=== PATIENT | female | born 1960 ===

== ENCOUNTER 2022-03-19 07:58 | Day surgery (SDC) | payer BC ==
[~2022-03-19 07:58] MED LIST: Acetaminophen/HYDROcodone 325-5 MG Tab PO PRN; Lactated Ringers 1,000 ML IV SCH; Morphine 2 MG/ML SYRINGE IVPUSH PRN; Ondansetron 4 MG/2 ML SDV IVPUSH PRN; Sodium Chloride 0.9% 1,000 ML IV SCH; ceFAZolin 2 GM in Sodium Chloride 0.9% 50 ML IV SCH
[2022-03-19] MEDS ORDERED: Glycopyrrolate 0.2 MG/ML 2 ML SDV ONE (09:40)
[2022-03-19] MEDS ORDERED: fentaNYL 100 MCG/2 ML SDV ONE (09:40)
[2022-03-19] MEDS ORDERED: Neostigmine Methylsulfate 10 MG/10 ML MDV ONE (09:40)
[2022-03-19] MEDS ORDERED: Atropine 0.4 MG/ML SDV ONE (09:40)
[2022-03-19] MEDS ORDERED: Rocuronium 50 MG/5 ML Vial ONE (09:40)
[2022-03-19] MEDS ORDERED: Propofol 200 MG/20 ML SDV ONE (09:40)
[2022-03-19] MEDS ORDERED: fentaNYL 100 MCG/2 ML SDV IVPUSH ONE (11:33)
[2022-03-19] MEDS ORDERED: Ondansetron 4 MG/2 ML SDV ONE (13:07)
== END 2022-03-19 13:40 | disposition home or self-care (01) ==
LOC: LB.SDS 07:58
PROVIDERS: ATTEND Surgery
DX: K43.2 Incisional hernia without obstruction or gangrene (principal); K42.9 Umbilical hernia without obstruction or gangrene; Z90.49 Acquired absence of other specified parts of digestive tract; Z87.42 Personal history of other diseases of the female genital tract
CPT/HCPCS: A9270-GY; C1781; J0461; J0690; J2405; J2704; J2710; J3010; J3490; J7120